=== PATIENT | male | born 1990 | race Caucasian/White ===

== ENCOUNTER → 2018-07-30 | Day surgery (SDC) | payer BC ==
[~2018-07-30] MED LIST: IV RINGERS,LACTATED 1000ML 1,000 ML IV SCH; LIDOCAINE 1% PF 2 ML VIAL. ID PRN; LIDOCAINE 1% PF 2 ML VIAL. ONE; MIDAZOLAM HCL/PF 2 MG/2 ML VIAL. IV PRN; PROPOFOL 60 ML IV ONE; SERT100T PO; fentaNYL PF VIAL 100 MCG/2 ML VIAL IV PRN
[2018-07-30 08:40] VITALS: BP 105/71
--- NOTE | 2018-08-04 09:07 | PATHOLOGY ---
[facility] Accession Number: [id number] . 01 Material submitted: . DISTAL ESOPHAGEAL BIOPSY . 01 Clinical history: . GERD, rectal bleeding . 02 Diagnosis: Esophagus, distal, biopsy: - Hyperplastic squamous epithelium with numerous intraepithelial eosinophils, findings consistent with reflux esophagitis (please see comment). LBQ/08/02/2018 . 02 Comment: In focal areas, greater than 20 eosinophils are present per high power field. This finding could be consistent with eosinophilic esophagitis. Clinical correlation is recommended. (SKM/db; 08/02/2018) . 02 Electronically signed: . Jovan Sultana MD, Pathologist NPI- [id number] . 01 Gross description: . Received in formalin labeled "Vic Baldwiner, distal esophageal BX," are 4 segments of barclay soft tissue measuring 1.5 x 0.9 x 0.2 cm in aggregate dimensions and ranging from 0.4 to 0.6 cm in maximum dimension. The specimen is submitted entirely in cassette A1. (TSD; 07/30/2018) TOB/TOB . 02 Pathologist provided ICD-10: K21.0 . 02 CPT . 077912 Specimen Comment: A courtesy copy of this report has been sent to Specimen Comment: [phone], . Specimen Comment: Report sent to / DR GALEANO Performed at: 01 [facility] [address], [place] [id number] MD Doroteo Rush MD Phone: [phone] Performed at: 02 [facility] [address], [place] [id number] MD Lorenzo Jiang MD Phone: [phone]
== END | disposition home or self-care (01) ==
LOC: SURG 06:41
PROVIDERS: ATTEND Internal Medicine Gastroenterology
DX: K21.0 Gastro-esophageal reflux disease with esophagitis (principal); K64.0 First degree hemorrhoids; F41.9 Anxiety disorder, unspecified; Z83.71 Family history of colonic polyps; Z82.49 Family history of ischemic heart disease and other diseases of the circulatory system; Z72.89 Other problems related to lifestyle; Z79.899 Other long term (current) drug therapy
CPT/HCPCS: 43239; 45378; 88305; J2704